=== PATIENT | female | born 2000 | race Caucasian/White ===

== ENCOUNTER 2021-08-22 17:53 | Inpatient (IN) | payer SELFPAY ==
--- NOTE | ~2021-08-22 | CT_ITS ---
EXAMINATION: CT abdomen pelvis w con INDICATION: Abdominal pain TECHNIQUE: Computed tomographic images of the abdomen and pelvis were obtained after the administrati on of 100 cc of Omnipaque 350 intravenous contrast. The dose-length product (DLP) was 192.05 mGy-cm. Automated exposure control and iterative reconstruction technique were employed. COMPARISON: None available FINDINGS: The lung bases are clear. The heart size is normal. The liver, spleen, pancreas, gallbladde r, and adrenal glands are normal. There is patchy perfusion of the kidneys. No pathologically enlarge d abdominal or pelvic lymph nodes are identified. There is no free intraperitoneal gas or evidence of bowel obstruction. The appendix is normal. There is a small volume of free fluid in the pelvis. IMPRESSION: 1. Findings consistent with bilateral pyelonephritis. Reviewed, dictated and finalized at location F. CULTURE DIRECTOR
--- NOTE | ~2021-08-22 | US_ITS ---
EXAMINATION: US renal BI DATE: 08/25/2021 14:58 INDICATION: Pyelonephritis. Persistent left flank pain. TECHNIQUE: Multiple ultrasound grayscale images of the kidneys were obtained. COMPARISON: None. FINDINGS: The right kidney measures 11.4 x 3.8 x 6.2 cm. The left kidney measures 10.7 x 5.1 x 3.5 cm. Subtle h eterogeneity to the renal cortical echogenicity in both kidneys with small regions with mildly increa sed echogenicity which appear to correspond to regions of hypoenhancement on prior CT consistent with pyelonephritis. There is no hydronephrosis in either kidney. No stones identified. The bladder is n ormal. IMPRESSION: 1. Several small ill-defined regions of subtle increased cortical echogenicity of both kidneys which appear to correspond to the region of hypoenhancement prior CT consistent with pyelonephritis. 2. No hydronephrosis. Reviewed, dictated and finalized at location A. T [employer] IMPRESSION: 1. Several small ill-defined regions of subtle increased cortical echogenicity of both kidneys which appear to correspond to the region of hypoenhancement pr ior CT consistent with pyelonephritis. 2. No hydronephrosis.
--- NOTE | ~2021-08-22 | XR_ITS ---
EXAMINATION: XR chest 1V portable INDICATION: Shortness of breath TECHNIQUE: Portable AP chest at 1857 hours COMPARISON: None available FINDINGS: The lungs are free of acute opacities. There is no pleural effusion or pneumothorax. The ca rdiomediastinal silhouette is normal. The visualized bones and soft tissues are unremarkable. IMPRESSION: 1. No acute cardiopulmonary abnormality. Reviewed, dictated and finalized at location F. IDENT PRACTICING UROLOGIST
[2021-08-22 18:08] VITALS: BP 109/65; PULSE 150; RESP 99; TEMP 39; O2SAT 98
--- NOTE | 2021-08-22 18:25 | PC.NURSE ---
pt states did not receive covid vaccine but did receive flu vaccine in may.
[2021-08-22 18:27] VITALS: PULSE 130
[2021-08-22] MEDS: SODIUM CHLORIDE 0.9% IV 1,000 ML 999 ML IV CONT ×2 (19:03→20:58)
[2021-08-22 19:07] VITALS: BP 109/65; PULSE 130; RESP 99; TEMP 39; O2SAT 98
[2021-08-22 19:12] LABS: Basophils Percent Auto 0.2 % (0.2-1.2); Hematocrit 35.4 % (37.0-47.0); Hemoglobin 12.1 g/dL (12.0-15.0); Immature Granulocyte Absolute 0.11 K/mm3 (0.00-0.031); Immature Granulocyte Percent A 0.7 % (0-0.5); Lymphocytes Absolute Auto 1.48 K/mm3 (0.9-3.2); Mean Corpuscular HGB Conc 34.2 g/dl (32-36); Mean Corpuscular Volume 87.8 fl (80-100); Mean Platelet Volume 9.8 fl (7.4-10.4); Monocytes Absolute Auto 1.3 K/mm3 (0.1-0.6); Monocytes Percent Auto 7.9 % (2.6-8.5); Neutrophils Absolute Auto 13.5 K/mm3 (1.3-6.7); Neutrophils Percent Auto 82.2 % (45.5-73.1); Platelet Count Result 276 k/mm3 (150-375); Red Blood Count 4.03 M/mm3 (4.2-5.4); Red Cell Distribution Width 11.9 % (11.5-14.5); White Blood Count 16.4 K/mm3 (4.5-10.0)
[2021-08-22 19:21] LABS: Alanine Aminotransferase 14 U/L (4-35); Albumin Level 3.9 g/dL (3.5-5.1); Alkaline Phosphatase 102 U/L (38-126); Anion Gap 13 mmol/L (8-16); Aspartate Amino Transferase 27 U/L (14-36); Bilirubin,Total 0.5 mg/dL (0.2-1.3); Blood Urea Nitrogen 6 mg/dL (7-17); Calcium 8.7 mg/dL (8.4-10.2); Carbon Dioxide 25 mmol/L (22-30); Chloride 94 mmol/L (98-107); Estimated CRCL calculation 62 ml/min; Estimated Glomerular Filt Rate > 60; Glucose 119 mg/dL (65-110); Potassium 3.5 mmol/L (3.4-5.0); Sodium 132 mmol/L (137-145)
--- NOTE | 2021-08-22 19:32 | ED.GENADULT ---
HPI - General Adult General Chief complaint: Weakness <Francisco Christina PA-C - Last Filed: 08/22/21 21:26> Stated complaint: MULTI C/O I THINK I HAVE COVID <Francisco Christina PA-C - Last Filed: 08/22/21 21:26> Time Seen by Provider: 08/22/21 18:34 <Francisco Christina PA-C - Last Filed: 08/22/21 21:26> Source: patient <STEVIE Nathan Last Filed: 08/22/21 21:26> Mode of arrival: ambulatory <STEVIE Nathan Last Filed: 08/22/21 21:26> Limitations: no limitations <Francisco Christina PA-C - Last Filed: 08/22/21 21:26> History of Present Illness HPI narrative: Patient is a 20-year-old female with chief complaint of fatigue, cough, congestion, sore throat, nausea, vomiting, diarrhea and abdominal pain that began on . Patient reports that she feels weak and dehydrated. Patient denies any blood in her vomit or stools. Patient reports that she has been trying to drink fluids but has not been able to eat or drink very much. Patient reports that she did receive her flu vaccination but has not received a COVID vaccination. Patient states that no one else at her home is sick. <Francisco Christina PA-C - Last Filed: 08/22/21 21:26> Related Data Home medications: Home Medications Medication Instructions Recorded Confirmed bupropion HCl [Wellbutrin] 75 mg PO TID 08/22/21 08/23/21 <Francisco Christina PA-C - Last Filed: 08/22/21 21:26> Allergies/adverse reactions: Allergies Allergy/AdvReac Type Severity Reaction Status Date / Time No Known Allergies Allergy Verified 08/22/21 18:25 <STEVIE Nathan Last Filed: 08/22/21 21:26> Review of Systems Review of Systems: CONSTITUTIONAL: Reports fever, body aches EYES: Denies visual changes, redness, or discharge. ENT: Reported rhinorrhea, congestion, sore throat, denies otalgia. CARDIOVASCULAR: Denies chest pain, palpitations, or edema. RESPIRATORY: Reports cough and dyspnea. GASTROINTESTINAL: Reports abdominal pain, nausea, vomiting, or diarrhea. GENITOURINARY: Denies dysuria or hematuria. SKIN: Denies rash or itching. MUSCULOSKELETAL: Denies back pain, joint pain, or myalgia. NEUROLOGIC: Denies headache, numbness, dizziness, or weakness. PSYCHIATRIC: Denies anxiety or depression. <Francisco Christina PA-C - Last Filed: 08/22/21 21:26> [facility] Social History Social History: Social History Smoking status: Never smoker Substance use: never Spiritual care concerns: No <Francisco Christina PA-C - Last Filed: 08/22/21 21:26> Exam Narrative: GENERAL: Well-appearing, well-nourished. Appears uncomfortable. HEAD: Normocephalic, atraumatic. EYES: PERRLA and EOMI. NECK: Range of motion intact without rigidity. CHEST: Clear to auscultation. No respiratory distress-mild tachypnea. No wheezes rales or rhonchi HEART: Increased rate and regular rhythm. No murmur heard. Normal peripheral pulses. ABDOMEN: Soft, tender with palpation of lower abdomen localizing to umbilicus, nondistended, normal active bowel sounds. No CVA tenderness. EXTREMITIES: Normal range of motion. No edema. SKIN: Warm, dry, no rash. NEURO: No focal deficits. Alert and oriented x3. PSYCH: Normal mood and affect. <Francisco Christina PA-C - Last Filed: 08/22/21 21:26> Course REHEATER/PA Physician Supervision For this patient encounter, I reviewed the REHEATER or PA documentation, treatment plan, and medical decision making. <Tevin Zuluaga MD - Last Filed: 08/23/21 11:27> Vital Signs Vital signs: Vital Signs Temperature 102.2 F H 08/22/21 18:08 Pulse Rate 150 H 08/22/21 18:08 Respiratory Rate 99 H 08/22/21 18:08 Blood Pressure 109/65 08/22/21 18:08 Pulse Oximetry 98 08/22/21 18:08 Temperature 98.8 F 08/23/21 10:13 Pulse Rate 89 08/23/21 06:00 Respiratory Rate 16 08/23/21 06:00 Blood Pressure 100/65 08/23/21 06:00 Pulse Oximetry 99 08/23/21 06:00 Theresa Choudhary
[2021-08-22 19:36] VITALS: BP 110/65; PULSE 110; RESP 24; TEMP 37.2; O2SAT 100
[2021-08-22 20:24] LABS: Add Urine Microscopic? YES; Appearance Urine Cloudy (Clear); Bacteria Urine Trace /hpf; Bilirubin Urine Negative (Negative); Blood Urine 2+ (Negative); Color Urine Yellow (Yellow); Glucose Urine UA Negative (Negative); Ketones Urine 1+ mg/dL (Negative); Leukocyte Esterase Ur 3+ LEU/UL (Negative); Mucus Urine Rare /lpf; Nitrate Urine Negative (Negative); Protein Urine Negative (Negative); Specific Grav Ur 1.003 (1.001-1.035); Squamous Epithelial Cell Urine Few /hpf (Few); Urobilinogen Urine Negative mg/dL (<2.0); WBC Urine 51-75 /hpf
[2021-08-22] MEDS: ONDANSETRON INJ 4 MG/2 ML VIAL IV PUSH (20:58)
[2021-08-22 21:11] LABS: EDCOVIDSCREEN Negative (Negative); Lactic Acid Reflex 0.6 mmol/L (0.7-2.1)
--- NOTE | 2021-08-22 21:22 | PM.IMHP ---
H&P: HPI History of Present Illness Date/Time: 08/22/21 21:22 cc: nausea, abdominal pain. HPI: This is a 20-year old lady without any significant past medical history presents to the emergency department with a 1 day onset of nausea associated with single episode of vomiting, several episodes of diarrhea, body aches. The patient had been in her usual state of health until last . She notices fatigue associated with dry cough, congestion sore throat nausea vomiting diarrhea and abdominal pain. Patient complains of generalized weakness and dehydration. Her vomitus has been without blood. She had loose bowel movements without blood. Oral intake has been poor as the patient reports trying to drink fluids but not able to keep much down. Patient has been vaccinated against the flu but has not been vaccinated against COVID-19. There is no sick contact at home. Her flu test was positive. Patient denies any lower urinary tract symptoms. There is no burning with urination foul smelly urine frequency or urgency. There is no history of recurrent UTI. There is no fever, chills, frequent urination, flank pain, hematoma. On arrival to the emergency room vital signs are stable but febrile with a temperature of 102.2? F, pulse rate 110-150, respiration 24, blood pressure 109/60 5-1 10/65 and pulse ox 90 8-100% on room air. CBC shows WBC of 16.4, hemoglobin 12.1, hematocrit 35.4 platelet count 276. Chemistry shows a serum sodium of 132, potassium 3.5, chloride 94, bicarb 25, BUN 6, creatinine 1 and a blood glucose of 119. Urinalysis shows 3+ leukocyte esterase, negative nitrate, RBC 3-5, the recent 51-75, trace bacteria. Chest x-ray shows no acute cardiopulmonary abnormality. Abdomen pelvis CT shows findings consistent with bilateral pyelonephritis. COVID-19 rapid antigen was negative. Influenza a was positive. Patient was given a bolus normal saline 1 L and started on ceftriaxone 1 g IV every 24 hours. Patient was admitted under observation status. Chief Complaint: Weakness; I think I may have COVID . Review of Systems Review of Systems: All systems reviewed & are unremarkable except as noted in HPI and below Constitutional: Constitutional: Reports as per HPI, Denies chills, Reports fatigue and Reports weakness Eyes: Eyes: Reports as per HPI, Reports no additional eye complaints and Denies blurry vision ENT: Reports system reviewed and no additional complaints, except as documented, Reports as per HPI and Denies epistaxis Cardiovascular: Cardiovascular: Reports as per HPI, Denies chest pain and Reports leg edema Comments: Tachycardia. Respiratory: Respiratory: Reports as per HPI, Reports no additional respiratory complaints and Reports dyspnea Gastrointestinal: Gastrointestinal: Reports as per HPI, Reports abdominal pain, Denies hematochezia, Reports diarrhea, Reports nausea, Reports vomiting and Denies hematemesis Genitourinary: Genitourinary: Reports as per HPI, Denies hematuria, Denies urinary frequency, Denies nocturia, Denies dysuria, Reports flank pain and Denies urinary urgency Musculoskeletal: Musculoskeletal: Reports no additional musculoskeletal complaints and Reports as per HPI Integumentary/Breasts: Skin/Breast: Reports system reviewed and no additional complaints, except as docu, Reports as per HPI and Denies rash Neurologic: Reports system reviewed and no additional complaints, except as documented, Reports as per HPI and Denies headache(s) Psychiatric: Psychiatric: Reports no additional psychiatric complaints and Reports as per HPI [facility] Social History Social History Smoking status: Never smoker Substance use: never Spiritual care concerns: No Meds Home Medications and Allergies Home Medications Medication Instructions Recorded Confirmed Type bupropion HCl [Wellbutrin] 75 mg PO TID 08/22/21 08/23/21 History Allergies Allergy/AdvReac Type Severity Re
[2021-08-22 22:50] VITALS: PULSE 80; RESP 18; O2SAT 100
[2021-08-22 22:55] VITALS: BP 96/61; PULSE 98; RESP 16; TEMP 36.2; O2SAT 100
[2021-08-22 23:19] VITALS: BMI 21.7
--- NOTE | 2021-08-22 23:25 | ADMGEN ---
This patient, Angelia Johnson, was admitted to [facility] Surg Room 332-02. Patient/family oriented to hospital policies and general routines including ID bracelet, bed and alarms, visiting hours, pain management, procedures, bathroom and other care routines, personal items, smoking policy, room service/diet, and visiting hours. Information on how to activate the Rapid Response Team has been discussed. Patient/Family are encouraged to report perceived risks to care and to ask questions if they do not understand what they are told or what they should do.
[2021-08-23] VITALS (8 sets, daily range): BP systolic 93–100; BP diastolic 43–65; PULSE 81–89; RESP 16–18; TEMP 35.6–40.3; O2SAT 99–100
[2021-08-23] MEDS: HYDROcodone/acetaminophen (*CRX) 5-325 MG TABLET 1 TAB PO ×2 (01:22→20:10)
[2021-08-23] MEDS: ACETAMINOPHEN 500 MG TABLET 1000 MG PO (09:10)
[2021-08-23] MEDS: IBUPROFEN 600 MG TABLET PO (09:11)
--- NOTE | 2021-08-23 12:34 | PM.IMPN ---
Progress Note: A&P Assessment and Plan (1) Pyelonephritis: Code(s): N12 - Tubulo-interstitial nephritis, not specified as acute or chronic Status: Acute Assessment and Plan: Patient presents classic symptoms of pyelonephritis including costovertebral angle tenderness on physical examination associated with nausea and vomiting. Denies any symptoms of cystitis She reports pain in the lower abdomen Leukocytosis, tachycardia and left shift UA + CT scan of the abdomen pelvis reveals bilateral pyelonephritis S/p IVF Continue Rocephin Follow UC and BC (2) Influenza A: Code(s): J10.1 - Influenza due to other identified influenza virus with other respiratory manifestations Status: Acute Assessment and Plan: Patient tested positive for influenza A Given the chronology of symptoms, there is not indication for antiviral medication Continue symptomatic management Subjective Date/time seen: 08/23/21 12:34 Interval history: Pt seen and evaluated; labs, vs, diagnostic results reviewed; denies any SOB or CP; +abdominal pain; TMAX 40.3 Review of Systems Review of Systems: All systems reviewed & are unremarkable except as noted in HPI and below Exam Const: General: no acute distress, alert and awake Orientation/consciousness: patient oriented x3 HENMT: Head: normocephalic and atraumatic Ears: hearing grossly normal bilaterally and external ears normal Face and sinus: face symmetric Mouth: Yes Normal oral and palatal mucosa present Eyes: EOM: EOMs intact bilaterally Neck: Neck: full ROM, trachea midline and no JVD Chest: Chest palpation & inspection: normal inspection of the chest Resp: Effort & Inspection: normal respiratory effort Cardio: Jugular venous distension: no JVD Rate: regular rate Rhythm: regular rhythm Heart sounds: S1 normal heart sound present and S2 normal heart sound present GI: Inspection: normal to inspection GI Palp: Yes Soft to palpation Percussion: Yes normal to percussion Auscultation: normal bowel sounds : General: Yes CVA tenderness Skin: General skin exam: normal color Rashes: no rashes Neuro: General: patient oriented x3 Speech: normal speech Extrem: General: no clubbing, cyanosis or edema Psych: Appearance: grossly normal Affect: normal affect Judgement: Good judgement present (Psych) Objective Data Vital Signs Vital Signs: Vital Signs - 24 hr 08/22/21 18:08 08/22/21 18:27 08/22/21 19:07 Temperature 39.0 C H 39.0 C H Pulse Rate 150 H 130 H 130 H Respiratory Rate 99 H 99 H Blood Pressure 109/65 109/65 Pulse Oximetry 98 98 08/22/21 19:36 08/22/21 22:50 08/22/21 22:55 Temperature 37.2 C 36.2 C L Pulse Rate 110 H 80 98 Respiratory Rate 24 H 18 16 Blood Pressure 110/65 96/61 L Pulse Oximetry 100 100 100 08/23/21 06:00 08/23/21 09:10 08/23/21 09:11 Temperature 36.8 C 40.3 C H 40.3 C H Pulse Rate 89 Respiratory Rate 16 Blood Pressure 100/65 Pulse Oximetry 99 08/23/21 10:11 08/23/21 10:13 Temperature 37.1 C 37.1 C Pulse Rate Respiratory Rate Blood Pressure Pulse Oximetry Intake/Output Intake/Output: Intake & Output 08/20/21 08/21/21 08/22/21 08/23/21 23:59 23:59 23:59 23:59 Intake Total 1100 490 Balance 1100 490 Meds/Results Medications: Active Medications Generic Name Dose Route Start Last Admin Trade Name Freq PRN Reason Stop Dose Admin Acetaminophen 1,000 mg 08/22/21 21:26 08/23/21 09:10 Acetaminophen 500 Mg Tablet PO 1,000 mg Q6H PRN Administration Mild Pain (1-3) or Fever Hydrocodone Bitart/Acetaminophen 1 tab 08/22/21 21:26 08/23/21 01:22 Hydrocodone/Acetaminophen (*Crx) 5-325 Mg Tablet PO 1 tab Q4H PRN Administration Pain Rated 4-6 Ceftriaxone Sodium/Dextrose 1 gm in 50 mls @ 100 mls/hr 08/23/21 21:00 Rocephin 1 Gm/D5w 50 Ml IVPB Q24H CHRISTOPHER Ibuprofen 600 mg 08/22/21 21:26 08/23/21 09:11 Ibuprofen 600 Mg Tablet PO 6
[2021-08-24] MEDS: HYDROcodone/acetaminophen (*CRX) 5-325 MG TABLET 1 TAB PO (01:23)
[2021-08-24 06:00] VITALS: BP 106/54; PULSE 94; RESP 16; TEMP 36.6; O2SAT 99
[2021-08-24 08:00] VITALS: BP 107/53; PULSE 89; RESP 16; TEMP 36.3; O2SAT 99
[2021-08-24 09:40] LABS: Basophils Percent Auto 0.2 % (0.2-1.2); Eosinophils Absolute Auto 0.1 K/mm3 (0-0.3); Eosinophils Percent Auto 0.8 % (0-4.4); Hematocrit 32.1 % (37.0-47.0); Hemoglobin 10.8 g/dL (12.0-15.0); Immature Granulocyte Absolute 0.22 K/mm3 (0.00-0.031); Immature Granulocyte Percent A 1.7 % (0-0.5); Lymphocytes Absolute Auto 2.02 K/mm3 (0.9-3.2); Lymphocytes Percent Auto 15.4 % (18.3-44.2); Mean Corpuscular HGB Conc 33.6 g/dl (32-36); Mean Corpuscular Hemoglobin 30.3 pg (26-34); Mean Corpuscular Volume 90.2 fl (80-100); Mean Platelet Volume 9.3 fl (7.4-10.4); Monocytes Percent Auto 7.9 % (2.6-8.5); Neutrophils Absolute Auto 9.7 K/mm3 (1.3-6.7); Platelet Count Result 271 k/mm3 (150-375); Red Blood Count 3.56 M/mm3 (4.2-5.4); Red Cell Distribution Width 12.5 % (11.5-14.5); White Blood Count 13.1 K/mm3 (4.5-10.0)
[2021-08-24 09:52] LABS: Alanine Aminotransferase 19 U/L (4-35); Albumin Level 3.3 g/dL (3.5-5.1); Alkaline Phosphatase 92 U/L (38-126); Anion Gap 5 mmol/L (8-16); Aspartate Amino Transferase 35 U/L (14-36); Bilirubin,Total 0.3 mg/dL (0.2-1.3); Blood Urea Nitrogen 6 mg/dL (7-17); Calcium 8.7 mg/dL (8.4-10.2); Carbon Dioxide 31 mmol/L (22-30); Chloride 100 mmol/L (98-107); Estimated CRCL calculation 86 ml/min; Estimated Glomerular Filt Rate > 60; Glucose 111 mg/dL (65-110); Potassium 3.9 mmol/L (3.4-5.0); Sodium 136 mmol/L (137-145)
[2021-08-24] MEDS: ACETAMINOPHEN 500 MG TABLET 1000 MG PO (11:09)
[2021-08-24 11:52] VITALS: BP 102/64; PULSE 95; RESP 17; TEMP 36.6; O2SAT 98
[2021-08-24 16:25] VITALS: BP 97/60; PULSE 79; RESP 17; TEMP 36; O2SAT 99
--- NOTE | 2021-08-24 18:04 | PM.IMPN ---
Progress Note: A&P Assessment and Plan (1) Pyelonephritis: Code(s): N12 - Tubulo-interstitial nephritis, not specified as acute or chronic Status: Acute Assessment and Plan: Patient presents classic symptoms of pyelonephritis including costovertebral angle tenderness on physical examination associated with nausea and vomiting. N/V/abd pain resolved. Leukocytosis, tachycardia and left shift -- RESOLVED. CT scan of the abdomen pelvis reveals bilateral pyelonephritis S/p IVFs Continue Rocephin Her blood cultures from the 11th showed no growth, her urine culture from the 11th showed E coli that was sensitive to Rocephin. Will continue IV Rocephin. Her leukocytes have improved from 16.4 to 13.1. And no fevers for the past 24 hours. (2) Influenza A: Code(s): J10.1 - Influenza due to other identified influenza virus with other respiratory manifestations Status: Acute Assessment and Plan: Patient tested positive for influenza A Given the chronology of symptoms, there is not indication for antiviral medication Continue symptomatic management no concerns noted today. ordered incentive spirometer Subjective Date/time seen: 08/24/21 18:04 Interval history: Angelia was resting in bed at the time of my exam. She was comfortable. She is not requiring any supplemental oxygen at this time. She has been eating well and drinking well and urinating independently. She does continue to have some posterior flank pain bilaterally. She is tolerating her IV antibiotics well. She denies any nausea or vomiting or diarrhea or abdominal pain. Her blood cultures from the 11th showed no growth, her urine culture from the th showed E coli that was sensitive to Rocephin. Will continue IV Rocephin. Her leukocytes have improved from 16.4 to 13.1. And no fevers for the past 24 hours. Review of Systems Review of Systems: All systems reviewed & are unremarkable except as noted in HPI and below Constitutional: Constitutional: Reports as per HPI, Denies chills, Reports fatigue, Denies headache(s) and Reports weakness Eyes: Eyes: Reports as per HPI, Reports no additional eye complaints and Denies blurry vision ENT: Reports system reviewed and no additional complaints, except as documented, Reports as per HPI, Denies headache(s) and Denies epistaxis Cardiovascular: Cardiovascular: Reports as per HPI, Denies chest pain and Reports dyspnea Respiratory: Respiratory: Reports as per HPI, Reports no additional respiratory complaints, Denies chest congestion, Denies cough, Denies hemoptysis, Reports dyspnea, Reports dyspnea on exertion and Denies wheezing Gastrointestinal: Gastrointestinal: Reports as per HPI, Denies abdominal pain, Denies hematochezia, Denies diarrhea, Denies nausea, Denies vomiting and Denies hematemesis Genitourinary: Genitourinary: Reports as per HPI, Denies hematuria, Denies urinary frequency, Denies nocturia, Denies dysuria, Reports flank pain (bilaterally ) and Denies urinary urgency Musculoskeletal: Musculoskeletal: Reports no additional musculoskeletal complaints, Reports as per HPI and Reports myalgias Integumentary/Breasts: Skin/Breast: Reports system reviewed and no additional complaints, except as docu, Reports as per HPI and Denies rash Neurologic: Reports system reviewed and no additional complaints, except as documented, Reports as per HPI, Denies headache(s) and Reports weakness Psychiatric: Psychiatric: Reports no additional psychiatric complaints and Reports as per HPI Endocrine: Endocrine: Reports fatigue Exam Narrative: GENERAL: Well-appearing, well-nourished. Appears uncomfortable. HEAD: Normocephalic, atraumatic. EYES: PERRLA and EOMI. NECK: Range of motion intact without rigidity. CHEST: Clear to auscultation. No respiratory distress-mild tachypnea. No wheezes rales or rhonchi HEART: Increased rate and regular rhythm. No murmur heard. Normal peripheral pulses. ABDOMEN: Soft,
[2021-08-24 23:04] VITALS: BP 116/68; PULSE 93; RESP 17; TEMP 36.5; O2SAT 100
[2021-08-25 06:34] VITALS: BP 117/69; PULSE 80; RESP 18; TEMP 36.5; O2SAT 100
--- NOTE | 2021-08-25 08:55 | PM.DS ---
DS: Admitting Diagnosis Discharge Date 08/25/2021 Admitting Diagnosis Pyelonephritis, influenza a DS: Discharge Diagnosis Discharge Diagnosis (1) Pyelonephritis: Code(s): N12 - Tubulo-interstitial nephritis, not specified as acute or chronic Status: Acute Assessment and Plan: Patient presents classic symptoms of pyelonephritis including costovertebral angle tenderness on physical examination associated with nausea and vomiting. N/V/abd pain resolved. Leukocytosis, tachycardia and left shift -- RESOLVED. CT scan of the abdomen pelvis reveals bilateral pyelonephritis S/p IVFs Continue Rocephin Her blood cultures from the showed no growth, her urine culture from the showed E coli that was sensitive to Rocephin. Will continue IV Rocephin. Her leukocytes have improved from 16.4 to 13.1. And no fevers for the past 24 hours. (2) Influenza A: Code(s): J10.1 - Influenza due to other identified influenza virus with other respiratory manifestations Status: Acute Assessment and Plan: Patient tested positive for influenza A Given the chronology of symptoms, there is not indication for antiviral medication Continue symptomatic management no concerns noted today. ordered incentive spirometer DS: Summary Hospital Course Hospital Course: Patient admitted, IV fluids given, patient started on IV antibiotics Rocephin, urine cultures and blood cultures completed, urine culture grew E coli sensitive to Cipro and Rocephin. Patient discharged on oral Cipro for 2 weeks with expected follow-up to her primary care provider. Patient is not having any shortness of breath or respiratory difficulties or cough related to influenza A. Instructed her to use her incentive spirometer and follow-up with her PCP. Time Spent with Patient Time attestation: Total time spent providing and/or coordinating discharge services: 60 minutes Exam Narrative: GENERAL: Well-appearing, well-nourished. Appears uncomfortable. HEAD: Normocephalic, atraumatic. EYES: PERRLA and EOMI. NECK: Range of motion intact without rigidity. CHEST: Clear to auscultation. No respiratory distress-mild tachypnea. No wheezes rales or rhonchi HEART: Increased rate and regular rhythm. No murmur heard. Normal peripheral pulses. ABDOMEN: Soft, tender with palpation of lower abdomen localizing to umbilicus, nondistended, normal active bowel sounds. Bilateral CVA tenderness. EXTREMITIES: Normal range of motion. No edema. SKIN: Warm, dry, no rash. NEURO: No focal deficits. Alert and oriented x3. PSYCH: Normal mood and affect. Const: General: comfortable, no acute distress, alert and awake Orientation/consciousness: patient oriented x3 HENMT: Head: normocephalic and atraumatic Ears: hearing grossly normal bilaterally and external ears normal General nose exam: no epistaxis Face and sinus: face symmetric Mouth: Yes Normal oral and palatal mucosa present Eyes: EOM: EOMs intact bilaterally Neck: Neck: full ROM, trachea midline and no JVD Chest: Chest palpation & inspection: normal inspection of the chest Resp: Effort & Inspection: normal respiratory effort Cardio: Jugular venous distension: no JVD Rate: regular rate Rhythm: regular rhythm Heart sounds: S1 normal heart sound present and S2 normal heart sound present GI: Inspection: normal to inspection and non-distended Auscultation: normal bowel sounds : General: Yes CVA tenderness Urinary Catheter: Urinary Catheter: urine clear (but thomas) Back/Spine/Pelvis: Back: CVA tenderness Skin: General skin exam: normal color Rashes: no rashes Neuro: General: patient oriented x3 and gait normal Speech: normal speech Motor exam (neuro): 5/5 motor strength present throughout and Normal motor muscle tone present throughout Extrem: General: normal to inspection, normal exam except as noted, no clubbing, cyanosis or edema, no edema and no pedal edema Psych: Appearance: grossly normal Me
[2021-08-25] MEDS: HYDROcodone/acetaminophen (*CRX) 5-325 MG TABLET 1 TAB PO (10:01)
[2021-08-25 12:47] LABS: Hematocrit 37.8 % (37.0-47.0); Hemoglobin 12.4 g/dL (12.0-15.0); Mean Corpuscular HGB Conc 32.8 g/dl (32-36); Mean Corpuscular Hemoglobin 30.2 pg (26-34); Mean Corpuscular Volume 92.2 fl (80-100); Mean Platelet Volume 9.6 fl (7.4-10.4); Platelet Count Result 388 k/mm3 (150-375); Red Cell Distribution Width 12.7 % (11.5-14.5); White Blood Count 8.6 K/mm3 (4.5-10.0)
[2021-08-25 12:58] LABS: Alanine Aminotransferase 18 U/L (4-35); Albumin Level 3.8 g/dL (3.5-5.1); Alkaline Phosphatase 108 U/L (38-126); Anion Gap 10 mmol/L (8-16); Aspartate Amino Transferase 25 U/L (14-36); Bilirubin,Total 0.5 mg/dL (0.2-1.3); Blood Urea Nitrogen 6 mg/dL (7-17); Calcium 9.4 mg/dL (8.4-10.2); Carbon Dioxide 29 mmol/L (22-30); Chloride 98 mmol/L (98-107); Estimated CRCL calculation 86 ml/min; Estimated Glomerular Filt Rate > 60; Glucose 106 mg/dL (65-110); Potassium 3.8 mmol/L (3.4-5.0); Sodium 137 mmol/L (137-145)
[2021-08-25 14:00] VITALS: BP 109/66; PULSE 82; RESP 14; TEMP 35.7; O2SAT 100
[2021-08-25 16:00] VITALS: BP 122/69; PULSE 89; RESP 16; TEMP 36.4; O2SAT 100
== END 2021-08-25 18:29 | disposition home or self-care (01) | DRG 463 ==
LOC: ANHED 21:10 → ANH3MEDSUR 22:16
PROVIDERS: Emergency Medicine; Physician Assistant; Admitting Provider Internal Medicine; Emergency Provider Emergency Medicine; Visit Provider Nurse Practitioner
DX: N12 Tubulo-interstitial nephritis, not specified as acute or chronic (principal); B96.20 Unspecified Escherichia coli [E. coli] as the cause of diseases classified elsewhere; J10.1 Influenza due to other identified influenza virus with other respiratory manifestations; Z20.822 Contact with and (suspected) exposure to COVID-19; Z79.899 Other long term (current) drug therapy
CPT/HCPCS: 36415; 71045; 74177; 76775; 80053; 81001; 81025; 83605; 85025; 85027; 87040; 87077; 87086; 87088; 87186; 87426; 87804; 96361; 96365; 96366; 96367; 96375; 99285; A9270; C9803; G0378; J0131; J0696; J2405; J7030; Q9967

== ENCOUNTER 2021-10-03 17:00 | Emergency (ER) | payer MEDICAID, SELFPAY ==
--- NOTE | ~2021-10-03 | US_ITS ---
EXAMINATION: US OB <=14 wk fetus w TV DATE: 10/03/2021 19:07 INDICATION: Intermittent vaginal bleeding during first trimester TECHNIQUE: Real-time pelvic transabdominal and transvaginal ultrasound was performed. COMPARISON: None. FINDINGS: The uterus measures 6.9 x 5.9 x 4.3 cm. There is an intrauterine gestational sac. A yolk s ac is identified. heart motion is identified measuring 92 beats per minute (bpm) by M-mode Dopp ler. The crown rump length measures 2 mm , which correlates with an estimated gestational age o f 6 weeks and 0 day(s) (+/-) 3 day(s). The left ovary is not visualized however no left adnexal abnormality is seen. The right ovary measure s 2.5 x 1.6 x 1.4 cm. There is normal vascular flow in the right ovary. There is a small amount of fr ee fluid in the pelvis. IMPRESSION: 1. Live intrauterine with an estimated gestational age of 6 weeks and 0 day(s) (+/-) 3 day( s) and an estimated delivery date of 05/29/2022. 2. bradycardia. Reviewed, dictated and finalized at location [employer] IMPRESSION: 1. Live intrauterine with an estimated gestational age of 6 weeks and 0 day(s) (+/-) 3 day(s) and an estimated delivery date of 05/29/2022. 2. bradycardia.
[2021-10-03 17:01] VITALS: BP 106/63; PULSE 92; RESP 20; TEMP 36; O2SAT 100
--- NOTE | 2021-10-03 17:50 | ED.PREGNANCY ---
HPI - General Chief complaint: Vaginal Bleeding <Sintia Ramos PA-C - Last Filed: 10/03/21 20:38> Stated complaint: Vaginal Bleeding, 7 weeks <Sintia Ramos PA-C - Last Filed: 10/03/21 20:38> Time Seen by Provider: 10/03/21 17:43 <Sintia Ramos PA-C - Last Filed: 10/03/21 20:38> Source: patient <Sintia Ramos PA-C - Last Filed: 10/03/21 20:38> Mode of arrival: ambulatory <STEVIE Sweeney Last Filed: 10/03/21 20:38> Limitations: no limitations <Sintia Ramos PA-C - Last Filed: 10/03/21 20:38> History of Present Illness HPI Narrative: This is a 20-year-old , about 8 weeks by LMP that presents to the emergency department for vaginal bleeding. Ongoing since yesterday. Associated with some mild pelvic cramping. She does not have an [employer]. Reports she was recently admitted to this facility for pyelonephritis. She did not finish her antibiotics as she found out she was . Does report some urinary frequency. Denies fever, vomiting, flank pain, or dysuria. <Sintia Ramos PA-C - Last Filed: 10/03/21 20:38> Related Data Home medications: Home Medications Medication Instructions Recorded Confirmed bupropion HCl 75 mg PO TID 08/22/21 08/23/21 <Sintia Ramos PA-C - Last Filed: 10/03/21 20:38> Allergies/Adverse reactions: Allergies Allergy/AdvReac Type Severity Reaction Status Date / Time No Known Allergies Allergy Verified 10/03/21 17:23 <STEVIE Sweeney Last Filed: 10/03/21 20:38> Review of Systems Review of Systems: CONSTITUTIONAL: Denies fever GASTROINTESTINAL: Reports pelvic pain. Denies nausea, vomiting GENITOURINARY: Denies dysuria or hematuria. <STEVIE Sweeney Last Filed: 10/03/21 20:38> All systems reviewed & are unremarkable except as noted in HPI and below <Sintia Ramos PA-C - Last Filed: 10/03/21 20:38> PMFSH Past Medical History Medical History: Medical History (Updated 10/03/21 @ 20:36 by Sintia Ramos PA-C) No active medical problems <Sintia Ramos PA-C - Last Filed: 10/03/21 20:38> Social History Social History: Social History Smoking status: Never smoker Substance use: never Spiritual care concerns: No <Sintia Ramos PA-C - Last Filed: 10/03/21 20:38> Exam Narrative: GENERAL: Well-appearing, well-nourished, and in no acute distress. HEAD: Normocephalic, atraumatic. EYES: EOMI. CHEST: Clear to auscultation. No respiratory distress. No wheezes rales or rhonchi HEART: Regular rate and rhythm. No murmur heard. Normal peripheral pulses. ABDOMEN: Soft, nontender, nondistended, normal active bowel sounds. No CVA tenderness EXTREMITIES: Normal range of motion. No edema. SKIN: Warm, dry, no rash. NEURO: No focal deficits. Alert and oriented x3. PSYCH: Normal mood and affect PELVIC: Normal appearing cervix, closed. Small amount of brown discharge noted <Sintia Ramos PA-C - Last Filed: 10/03/21 20:38> Course Consultations Consultation #1: Spoke with Dr. Easley about patient and work-up. Patient is to follow-up in clinic next week. <Sintia Ramos PA-C - Last Filed: 10/03/21 20:38> Date: 10/03/21 <Sintia Ramos PA-C - Last Filed: 10/03/21 20:38> Time: 20:35 <Sintia Ramos PA-C - Last Filed: 10/03/21 20:38> Vital Signs Vital signs: Vital Signs Temperature 96.8 F L 10/03/21 17:01 Pulse Rate 92 10/03/21 17:01 Respiratory Rate 20 10/03/21 17:01 Blood Pressure 106/63 10/03/21 17:01 Pulse Oximetry 100 10/03/21 17:01 Temperature 98.6 F 10/03/21 21:06 Pulse Rate 72 10/03/21 21:06 Respiratory Rate 18 10/03/21 21:06 Blood Pressure 108/63 10/03/21 21:06 Pulse Oximetry 99 10/03/21 21:06 <Sintia Ramos PA-C - Last Filed: 10/03/21 20:38> MDM - OB/Uterine Contractions MDM Narrative Medical decision making na
[2021-10-03 18:10] VITALS: BP 101/69; PULSE 85
[2021-10-03 18:12] VITALS: BP 106/69; BP 111/69; PULSE 78; PULSE 80
[2021-10-03 18:28] LABS: Basophils Percent Auto 0.3 % (0.2-1.2); Eosinophils Absolute Auto 0.2 K/mm3 (0-0.3); Eosinophils Percent Auto 2.5 % (0-4.4); Hematocrit 41.2 % (37.0-47.0); Hemoglobin 13.8 g/dL (12.0-15.0); Immature Granulocyte Absolute 0.02 K/mm3 (0.00-0.031); Immature Granulocyte Percent A 0.3 % (0-0.5); Lymphocytes Absolute Auto 2.28 K/mm3 (0.9-3.2); Lymphocytes Percent Auto 28.9 % (18.3-44.2); Mean Corpuscular HGB Conc 33.5 g/dl (32-36); Mean Corpuscular Hemoglobin 30.3 pg (26-34); Mean Corpuscular Volume 90.5 fl (80-100); Mean Platelet Volume 9.4 fl (7.4-10.4); Monocytes Absolute Auto 0.4 K/mm3 (0.1-0.6); Monocytes Percent Auto 4.9 % (2.6-8.5); Neutrophils Percent Auto 63.1 % (45.5-73.1); Platelet Count Result 311 k/mm3 (150-375); Red Blood Count 4.55 M/mm3 (4.2-5.4); Red Cell Distribution Width 12.4 % (11.5-14.5); White Blood Count 7.9 K/mm3 (4.5-10.0)
[2021-10-03 18:31] LABS: Anion Gap 10 mmol/L (8-16); Blood Urea Nitrogen 7 mg/dL (7-17); Calcium 10.1 mg/dL (8.4-10.2); Carbon Dioxide 24 mmol/L (22-30); Chloride 104 mmol/L (98-107); Estimated CRCL calculation 99 ml/min; Estimated Glomerular Filt Rate > 60; Glucose 84 mg/dL (65-110); Sodium 138 mmol/L (137-145)
[2021-10-03 18:44] LABS: Add Urine Microscopic? NO; Appearance Urine Clear (Clear); Bilirubin Urine Negative (Negative); Blood Urine Negative (Negative); Color Urine Straw (Yellow); Glucose Urine UA Negative (Negative); Ketones Urine Negative (Negative); Leukocyte Esterase Ur Negative LEU/UL (Negative); Nitrate Urine Negative (Negative); Protein Urine Negative (Negative); Specific Grav Ur 1.008 (1.001-1.035); Urobilinogen Urine Negative mg/dL (<2.0)
--- NOTE | 2021-10-03 18:50 | PC.NURSE ---
Patient departs for
[2021-10-03 19:58] VITALS: BP 108/74; PULSE 84; RESP 16; TEMP 37.1; O2SAT 99
[2021-10-03 21:06] VITALS: BP 108/63; PULSE 72; RESP 18; TEMP 37; O2SAT 99
== END 2021-10-03 21:07 | disposition home or self-care (01) ==
PROVIDERS: Physician Assistant; Emergency Provider General Practice
DX: O20.9 Hemorrhage in early pregnancy, unspecified (principal); O36.8310 Maternal care for abnormalities of the fetal heart rate or rhythm, first trimester, not applicable or unspecified; Z3A.01 Less than 8 weeks gestation of pregnancy
CPT/HCPCS: 36415; 76801; 76817; 80048; 81003; 81025; 84702; 85025; 85461; 99284

== ENCOUNTER 2022-05-24 12:44 | Outpatient (CLI) | payer OTHER, SELFPAY ==
[2022-05-24 18:11] VITALS: BP 121/76; PULSE 91
== END 2022-05-24 14:05 | disposition home or self-care (01) ==
LOC: ANHOBOP 14:02
PROVIDERS: Visit Provider Obstetrics & Gynecology
DX: O41.8X90 Other specified disorders of amniotic fluid and membranes, unspecified trimester, not applicable or unspecified (principal); Z3A.00 Weeks of gestation of pregnancy not specified
CPT/HCPCS: 59025; 84112

== ENCOUNTER 2022-05-31 02:00 | Inpatient (IN) | payer OTHER, SELFPAY ==
[2022-05-31] VITALS (121 sets, daily range): BP systolic 88–214; BP diastolic 45–198; PULSE 28–234; RESP 18; TEMP 36.3–37.1; O2SAT 96–100; BMI 22.1
--- OUTSIDE RECORDS SUMMARY | 2022-05-31 03:40 | XMS_ITS | Encounter Summary ---
:2000 Author Reason for Visit None recorded. Assessment and Plan 1. COVID-19 ? US, obstetric, follow-up Discussion Note: None recorded.Patient educational handouts: No information available. Plan of Care Reminders Provider Appointments Induction 06/04/2022 Jany castañeda MD 4:00PM Lab None recorded. ? ? Referral None recorded. ? ? Procedures None recorded. ? ? Surgeries None recorded. ? ? Imaging US, Obstetric, Follow-up 05/01/2022 Effie pedraza Medications Name Start Date ? ? Euthyrox 75 mcg tablet ? Take 1 tablet every day by oral route. ondansetron 8 mg disintegrating tablet ? Place 1 tablet twice a day by translingual route. Medications Administered None recorded. Vitals None recorded. Results Lab Results None recorded. Allergies Code Code System Name Reaction Severity Onset NKDA ? ? ? Problems Name Status Onset Date Source ? Active 12/13/2021 ? Uterine Size for Dates Discrepancy Active 03/30/2022 ? Subclinical Hypothyroidism Active ? ? Procedures Date Name Performed by ? 08/12/2016 Dilation and Curettage Information not a vailable 04/10/2022 US, Obstetric, Follow-up [place] [address] [place] [address] ([address]) 05/01/2022 US, Obstetric, Follow-up [place] [address] [place] [address]
--- OUTSIDE RECORDS SUMMARY | 2022-05-31 03:40 | XMS_ITS | Encounter Summary ---
:2000 Author Reason for Visit OB visit Assessment and Plan 1. Routine care 2. Subclinical hypothyroidism 3. Uterine size for dates discrepancy Discussion Note: None recorded.Patient educational handouts: No information available. Plan of Care Reminders Provider Appointments Induction 06/04/2022 4:00PM Jany Easley MD Lab None recorded. ? ? Referral None recorded. ? ? Procedures None recorded. ? ? Surgeries None recorded. ? ? Imaging None recorded. ? ? Medications Name Start Date ? ? Euthyrox 75 mcg tablet ? Take 1 tablet every day by oral route. ondansetron 8 mg disintegrating tablet ? Place 1 tablet twice a day by translingual route. Medications Administered None recorded. Vitals Height Weight BMI Blood Pressure 5 ft 2 in 114 lbs 20.9 kg/m2 99/67 mm[Hg] Results Lab Results None recorded. Allergies Code Code System Name Reaction Severity Onset NKDA ? ? ? Problems Name Status Onset Date Source ? Active 12/13/2021 ? Uterine Size for Dates Discrepancy Active 03/30/2022 ? Subclinical Hypothyroidism Active ? ? Procedures Date Name Performed by ? 08/12/2016 Dilation and Curettage Information not a vailable 04/10/2022 , Obstetric, Follow-up [place] [address] [place] [address] ([address]) Vaccine List None recorded. Social History
--- OUTSIDE RECORDS SUMMARY | 2022-05-31 03:40 | XMS_ITS | Encounter Summary ---
:2000 Author Reason for Visit OB visit Assessment and Plan 1. Routine care Discussion Note: None recorded.Patient educational handouts: No [...] BMI Blood Pressure 5 ft 2 in 118 lbs 21.6 kg/m2 110/71 mm[Hg] Results Lab Results None recorded. Allergies Code Code System Name Reaction Severity Onset NKDA ? ? ? Problems Name Status Onset Date Source ? Active 12/13/2021 ? Uterine Size for Dates Discrepancy Active 03/30/2022 ? Subclinical Hypothyroidism Active ? ? Procedures Date Name Performed by ? 08/12/2016 Dilation and Curettage Information not a vailable 04/10/2022 US, Obstetric, Follow-up [place] [address] [place] [address] ([address]) 05/01/2022 US, Obstetric, Follow-up [place] [address] [place],
--- OUTSIDE RECORDS SUMMARY | 2022-05-31 03:40 | XMS_ITS ---
:2000 Author Care Team Providers Name Role Phone Jany Easley Primary Care Provider Unavailable Allergies Code Code System Name Reaction Severity Status Onset NKDA ? Medications Name Status Start Date Stop Date ? ? bupropion HCl XL 150 mg 24 hr tablet, extended release Completed ? 11/01/2021 TAKE 1 TABLET BY MOUTH DAILY bupropion HCl XL 300 mg 24 hr tablet, extended release Completed ? 11/01/2021 TAKE 1 TABLET BY MOUTH DAILY ciprofloxacin 500 mg tablet Completed ? 10/11 TAKE 1 TABLET BY MOUTH EVERY 12 HOURS FOR 14 DAYS FOR PYELONEPH RITIS etonogestrel 0.12 mg-ethinyl estradiol 0.015 mg/24 hr vaginal ri ng Completed ? 11/01/2021 INSERT 1 RING EVERY 3 TO 4 WEEKS DIRECTED Euthyrox 25 mcg tablet Completed ? 2 TAKE 1 TABLET BY MOUTH ONCE DAILY Euthyrox 50 mcg tablet Completed ? 2 Euthyrox 75 mcg tablet Active ? Not avail able levothyroxine 25 mcg capsule Completed ? ondansetron 8 mg disintegrating tablet Active ? Not available Problems Name Status Onset Date Source ? Active 12/13/2021 ? Uterine Size for Dates Discrepancy Active 03/30/2022 ? Subclinical Hypothyroidism Active ? ? Procedures Date Name Performed by ? 08/12/2016 Dilation and Curettage Information not a vailable 11/01/2021 US, Obstetric, Transvaginal [place] [address] [place] [address] ([address]) 01/10/2022 US, Obstetric, 2Nd or 3Rd Trimester Catie morgan
--- OUTSIDE RECORDS SUMMARY | 2022-05-31 03:40 | XMS_ITS | Encounter Summary ---
[...] ft 2 in 118 lbs 21.6 kg/m2 108/78 mm[Hg] Results Lab Results None recorded. Allergies Code Code System Name Reaction Severity Onset NKDA ? ? ? Problems Name Status Onset Date Source ? Active 12/13/2021 ? Uterine Size for Dates Discrepancy Active 03/30/2022 ? Subclinical Hypothyroidism Active ? ? Procedures Date Name Performed by ? 08/12/2016 Dilation and Curettage Information not a vailable 05/01/2022 , Obstetric, Follow-up [place] [address] [place] [address] ([address]) Vaccine List None recorded. Social History Tobacco Smoking Status Never Smoker Do you have difficulty walking or climbing stairs? N
--- OUTSIDE RECORDS SUMMARY | 2022-05-31 03:40 | XMS_ITS | Encounter Summary ---
[...] BMI Blood Pressure 5 ft 2 in 121 lbs 22.1 kg/m2 110/70 mm[Hg] Results Lab Results None recorded. Allergies Code Code System Name Reaction Severity Onset NKDA ? ? ? Problems Name Status Onset Date Source ? Active 12/13/2021 ? Uterine Size for Dates Discrepancy Active 03/30/2022 ? Subclinical Hypothyroidism Active ? ? Procedures Date Name Performed by ? 08/12/2016 Dilation and Curettage Information not a vailable 05/01/2022 , Obstetric, Follow-up [place] [address] [place] [address] ([address]) Vaccine List None recorded. Social History Tobacco Smoking Status Never Smoker Do you have difficulty walking or climbing stairs? N
--- OUTSIDE RECORDS SUMMARY | 2022-05-31 03:40 | XMS_ITS | Encounter Summary ---
[...] BMI Blood Pressure 5 ft 2 in 119 lbs 21.8 kg/m2 96/63 mm[Hg] Results Lab Results None recorded. Allergies Code Code System Name Reaction Severity Onset NKDA ? ? ? Problems Name Status Onset Date Source ? Active 12/13/2021 ? Uterine Size for Dates Discrepancy Active 03/30/2022 ? Subclinical Hypothyroidism Active ? ? Procedures Date Name Performed by ? 08/12/2016 Dilation and Curettage Information not a vailable 05/01/2022 , Obstetric, Follow-up [place] [address] [place] [address] ([address]) Vaccine List None recorded. Social History Tobacco Smoking Status Never Smoker Do you have difficulty walking or climbing stairs? N
--- OUTSIDE RECORDS SUMMARY | 2022-05-31 03:40 | XMS_ITS | Encounter Summary ---
[...] BMI Blood Pressure 5 ft 2 in 117 lbs 21.4 kg/m2 102/67 mm[Hg] Results Lab Results None recorded. Allergies Code Code System Name Reaction Severity Onset NKDA ? ? ? Problems Name Status Onset Date Source ? Active 12/13/2021 ? Uterine Size for Dates Discrepancy Active 03/30/2022 ? Subclinical Hypothyroidism Active ? ? Procedures Date Name Performed by ? 08/12/2016 Dilation and Curettage Information not a vailable 04/10/2022 US, Obstetric, Follow-up [place] [address] [place] [address] ([address]) 05/01/2022 US, Obstetric, Follow-up [place] [address] [place],
--- OUTSIDE RECORDS SUMMARY | 2022-05-31 03:40 | XMS_ITS | Encounter Summary ---
:2000 Author Reason for Visit OB visit Assessment and Plan 1. Uterine size for dates discrepancy 2. Routine care Discussion Note: None recorded.Patient educational [...] ft 2 in 114 lbs 20.9 kg/m2 98/67 mm[Hg] Results Lab Results None recorded. Allergies Code Code System Name Reaction Severity Onset NKDA ? ? ? Problems Name Status Onset Date Source ? Active 12/13/2021 ? Uterine Size for Dates Discrepancy Active 03/30/2022 ? Subclinical Hypothyroidism Active ? ? Procedures Date Name Performed by ? 08/12/2016 Dilation and Curettage Information not a vailable 03/15/2022 US, Obstetric, Follow-up [place] [address] [place] [address] ([address]) 04/10/2022 US, Obstetric, Follow-up [place] [address]
--- OUTSIDE RECORDS SUMMARY | 2022-05-31 03:40 | XMS_ITS | Encounter Summary ---
:2000 Author Reason for Visit None recorded. Assessment and Plan 1. Uterine size for dates discrepancy ? US, obstetric, follow-up Discussion Note: None recorded.Patient educational handouts: No information available. Plan of Care Reminders Provider Appointments Induction 06/04/2022 Jany castañeda MD 4:00PM Lab None recorded. ? ? Referral None recorded. ? ? Procedures None recorded. ? ? Surgeries None recorded. ? ? Imaging US, Obstetric, Follow-up 04/10/2022 Effie pedraza Medications Name Start Date ? [...] not a vailable 03/15/2022 US, Obstetric, Follow-up [place] [address] [place] [address] ([address]) 04/10/2022 US, Obstetric, Follow-up [place] [address]
--- OUTSIDE RECORDS SUMMARY | 2022-05-31 03:41 | XMS_ITS | Encounter Summary ---
:2000 Author Reason for Visit OB visit Assessment and Plan 1. Routine care 2. Uterine size for dates discrepancy Discussion Note: [...] BMI Blood Pressure 5 ft 2 in 112 lbs 20.5 kg/m2 96/62 mm[Hg] Results Lab Results None recorded. Allergies Code Code System Name Reaction Severity Onset NKDA ? ? ? Problems Name Status Onset Date Source ? Active 12/13/2021 ? Uterine Size for Dates Discrepancy Active 03/30/2022 ? Subclinical Hypothyroidism Active ? ? Procedures Date Name Performed by ? 08/12/2016 Dilation and Curettage Information not a vailable 03/15/2022 US, Obstetric, Follow-up [place] [address] [place] [address] ([address]) Vaccine List None recorded. Social History Tobacco Smoking Status Never Smoker D
--- OUTSIDE RECORDS SUMMARY | 2022-05-31 03:41 | XMS_ITS | Encounter Summary ---
:2000 Author Reason for Visit None recorded. Assessment and Plan 1. Small for gestational age fetus ? US, obstetric, follow-up Discussion Note: None recorded.Patient educational handouts: No information available. Plan of Care Reminders Provider Appointments Induction 06/04/2022 Jany castañeda MD 4:00PM Lab None recorded. ? ? Referral None recorded. ? ? Procedures None recorded. ? ? Surgeries None recorded. ? ? Imaging US, Obstetric, Follow-up 03/15/2022 Effie pedraza Medications Name Start Date ? [...] not a vailable 03/15/2022 US, Obstetric, Follow-up [place] [address] [place] [address] ([address]) Vaccine List None recorded. Social History Tobacco Smoking Status Never Smoker Do you have difficulty walking or climbing stairs? N
--- OUTSIDE RECORDS SUMMARY | 2022-05-31 03:41 | XMS_ITS | Encounter Summary ---
:2000 Author Reason for Visit OB visit Assessment and Plan Assessment Note Patient is ___weeks . Discussed plan. 1. Nausea and vomiting ? ondansetron 8 mg disintegrating table t 2. Hypothyroidism in ? levothyroxine 50 mcg tablet Discussion Note: None recorded.Patient educational handouts: No [...] BMI Blood Pressure 5 ft 2 in 110 lbs 20.1 kg/m2 96/64 mm[Hg] Results Lab Results None recorded. Allergies Code Code System Name Reaction Severity Onset NKDA ? ? ? Problems Name Status Onset Date Source ? Active 12/13/2021 ? Uterine Size for Dates Discrepancy Active 03/30/2022 ? Subclinical Hypothyroidism Active ? ? Procedures Date Name Performed by ? 08/12/2016 Dilation and Curettage Information not a vailable 03/15/2022 , Obstetric, Follow-up [place] [address]
--- NOTE | 2022-05-31 03:48 | LDADM ---
This patient, Angelia Johnson, was admitted to Labor/Delivery/Recovery 105 on 05/31/22 at 02:00. Plans for labor, pain management and were discussed with patient. Patient/family oriented to hospital policies and general routines including ID bracelet, bed and alarms, visiting hours, pain management, procedures, bathroom and other care routines, personal items, smoking policy, room service/diet and guest tray routines, security routines, and visiting hours. Patient/Family are encouraged to report perceived risks to care and to ask questions if they do not understand what they are told or what they should do. See OBIX for further documentation.
[2022-05-31 04:13] LABS: Basophils Percent Auto 0.3 % (0.2-1.2); Eosinophils Absolute Auto 0.2 K/mm3 (0-0.3); Eosinophils Percent Auto 1.4 % (0-4.4); Hematocrit 35.5 % (37.0-47.0); Hemoglobin 11.9 g/dL (12.0-15.0); Immature Granulocyte Absolute 0.08 K/mm3 (0.00-0.031); Immature Granulocyte Percent A 0.5 % (0-0.5); Lymphocytes Absolute Auto 2.36 K/mm3 (0.9-3.2); Lymphocytes Percent Auto 15.8 % (18.3-44.2); Mean Corpuscular HGB Conc 33.5 g/dl (32-36); Mean Corpuscular Hemoglobin 30.2 pg (26-34); Mean Corpuscular Volume 90.1 fl (80-100); Mean Platelet Volume 10.3 fl (7.4-10.4); Monocytes Absolute Auto 0.9 K/mm3 (0.1-0.6); Monocytes Percent Auto 5.8 % (2.6-8.5); Neutrophils Absolute Auto 11.4 K/mm3 (1.3-6.7); Neutrophils Percent Auto 76.2 % (45.5-73.1); Platelet Count Result 259 k/mm3 (150-375); Red Blood Count 3.94 M/mm3 (4.2-5.4); Red Cell Distribution Width 13.6 % (11.5-14.5); White Blood Count 14.9 K/mm3 (4.5-10.0)
[2022-05-31 06:35] LABS: Rapid Plasma Reagin Non-Reactive (NonReactive)
[2022-05-31] MEDS: LACTATED RINGERS 1,000 ML 125 ML IV CONT (07:50)
[2022-05-31] MEDS: ONDANSETRON INJ 4 MG/2 ML VIAL IV PUSH (07:52)
[2022-05-31] MEDS: fentaNYL CITRATE INJ (*CRX) 100 MCG/2 ML VIAL 50 MCG IV PUSH ×2 (07:53→09:15)
--- NOTE | 2022-05-31 08:35 | WPDHPUPDATE1 ---
History and Physical Update Update Date/Time: 05/31/22 08:35 This patient is a 21-year-old 2 para 0 and at term who presented for labor. Artificial rupture of membranes was performed. Clear fluid. Her exam is excellent. She is . There is reassuring heart tones. We are continue with expectant management. History and Physical has been reviewed, including an updated exam of the patient. There are NO changes in the patient's condition. Risks, benefits, and alternatives have been discussed and questions answered. Patient agrees to proceed with procedure.
--- NOTE | 2022-05-31 10:27 | P.PNAN_ITS ---
Anes - Eval Pre Procedure Procedure: labor epidural Date/Time: 05/31/22 10:27 Preop Diagnosis: labor pain Pre Op Diagnosis: Contractions Patient Data Age: 21 Gender: F Height: 1.57 m Weight: 55 kg Last Vital Signs Temp 37.1 C 05/31/22 10:20 Pulse 78 05/31/22 10:00 BP 104/68 05/31/22 10:00 O2 Del Method Room Air 05/31/22 03:46 Allergies Allergy/AdvReac Type Severity Reaction Status Date / Time No Known Allergies Allergy Verified 10/03/21 17:23 Home Medications Medication Instructions Recorded Confirmed Type levothyroxine 75 mcg tablet 75 mcg PO DAILY 05/10/22 05/10/22 History Laboratory Tests 05/31/22 05/31/22 05/31/22 04:01 04:01 04:01 WBC 14.9 K/mm3 H K/mm3 (4.5-10.0) RBC 3.94 M/mm3 L M/mm3 (4.2-5.4) Hgb 11.9 g/dL L g/dL (12.0-15.0) Hct 35.5 % L % (37.0-47.0) MCV 90.1 fl fl (80-100) MCH 30.2 pg pg (26-34) MCHC 33.5 g/dl g/dl (32-36) RDW 13.6 % % (11.5-14.5) Plt Count 259 k/mm3 k/mm3 (150-375) MPV 10.3 fl fl (7.4-10.4) Immature Gran % (Auto) 0.5 % % (0-0.5) Neut % (Auto) 76.2 % H % (45.5-73.1) Lymph % (Auto) 15.8 % L % (18.3-44.2) Davis % (Auto) 5.8 % % (2.6-8.5) Eos % (Auto) 1.4 % % (0-4.4) Baso % (Auto) 0.3 % % (0.2-1.2) Lymph # (Auto) 2.36 K/mm3 K/mm3 (0.9-3.2) Davis # (Auto) 0.9 K/mm3 H K/mm3 (0.1-0.6) Eos # (Auto) 0.2 K/mm3 K/mm3 (0-0.3) Baso # (Auto) 0.0 K/mm3 K/mm3 (0.0-0.1) Abs Immat Gran (auto) 0.08 K/mm3 H K/mm3 (0.00-0.031) Absolute Neuts (auto) 11.4 K/mm3 H K/mm3 (1.3-6.7) Absolute Nucleated RBC 0.0 K/mm3 K/mm3 (0.0-0.012) Nucleated RBC % 0.0 % % (0.0-0.2) RPR Non-reactive (NonReactive) Blood Type O Positive Antibody Screen Negative Patient hx anesthesia problems: none Family hx anesthesia problems: none Results Review: All pre-operative results and documents have been reviewed as part of the pre- operative evaluation. [facility] Past Medical History Medical History No active medical problems Family History Family History Other Patient denies significant medical history Social History Social History Smoking status: Never smoker Second hand tobacco smoke exposure: No Substance use: never Spiritual care concerns: No Exam Day of Procedure 05/31/22 10:27
[2022-05-31] MEDS: LACTATED RINGERS 1,000 ML 999 ML IV CONT ×2 (10:48→11:44)
[2022-05-31] MEDS: OXYTOCIN 30 UNITS/NS 500 ML 30 UNITS/500 ML BAG 999 UNITS IV CONT (15:37)
--- NOTE | 2022-05-31 15:58 | PM.OBPRVD ---
OB - Delivery Note Procedure Procedure: Induction method: None Delivery monitor: External FHT and External Uterine Route of delivery: Laceration Description: Perineal - 2nd Degree Delivery repair: vicryl Quantitative Blood Loss (ml): 250 Anesthesia type: Epidural [place] Baby Date of : 05/31/22 Time of : 15:34 Weeks of gestation at delivery: 40 Weight (pounds): 7 Weight (ounces): 0 presentation: vertex Cord Vessel Description: 3 Vessels score one minute: 8 score five minutes: 9
[2022-05-31] MEDS: WITCH HAZEL 40 PADS 1 PAD TOPICAL (17:27)
[2022-05-31] MEDS: BENZOCAINE 20% AER SPR (*SP) 56 GM CAN 1 SPRAY TOPICAL (17:27)
[2022-05-31] MEDS: ACETAMINOPHEN 325 MG TABLET 650 MG PO (17:27)
[2022-05-31] MEDS: IBUPROFEN 600 MG TABLET PO (17:28)
--- NOTE | 2022-05-31 18:46 | PC.NURSE ---
Patient transferred to post room #291 per wheelchair from labor and delivery. Support person present. Oriented to unit, room, information board, rooming in, admission packet and security measures. Patient verbalizes understanding.
[2022-06-01 00:40] VITALS: BP 106/71; PULSE 82; RESP 16; TEMP 36.6
[2022-06-01] MEDS: IBUPROFEN 600 MG TABLET PO ×4 (00:59→23:27)
[2022-06-01] MEDS: ACETAMINOPHEN 325 MG TABLET 650 MG PO ×2 (01:01→12:43)
[2022-06-01 05:00] VITALS: BP 98/55; PULSE 74; RESP 18; TEMP 36.4
[2022-06-01 05:24] LABS: Hematocrit 26.3 % (37.0-47.0); Hemoglobin 8.7 g/dL (12.0-15.0)
--- NOTE | 2022-06-01 08:01 | PM.OBPNVD ---
OB - PN: Subj Subjective Date/time seen: 06/01/22 08:01 Patient comments: no complaints and pain well controlled baby status: doing well and nursing well [place] feeding status: exclusively breast feeding OB - PN: Obj Data Labs CBC & Chem 7: 06/01/22 05:03 Labs: Laboratory Results - last 24 hr 06/01/22 05:03 Hgb 8.7 L D Hct 26.3 L OB - PN A/P Plan day: 1 Plan: routine care Comments: anemia- venofer x1 circ done after consented Time Spent With Patient Time: Total time spent is greater than 50% in coordination of care (as documented) at patient's floor/unit and/or counseling patient: Time with patient: less than 15 minutes Exam Narrative: NAD abdomen soft, nontender, fundus firm below the umbilicus Extremities nontender, 1+ edema
--- NOTE | 2022-06-01 08:09 | WPDANLDPN2 ---
Anes-Prog Note L&D Date/Time: 06/01/22 08:09 Comfortable throughout: labor and delivery Neuraxial method: epidural Epidural/Spinal procedure site: clean & non-tender Neuro status: Neuro function grossly intact. Cardiovascular status: normal Respiratory status: normal Airway patency: baseline Mental status: baseline Post-Op hydration status: normal Vital Signs: Last Vital Signs Temp 36.4 C L 06/01/22 05:00 Pulse 74 06/01/22 05:00 Resp 18 06/01/22 05:00 BP 98/55 L 06/01/22 05:00 Pulse Ox 98 05/31/22 14:46 O2 Del Method Room Air 05/31/22 03:46 Pain score (VAS): 2 I/O: Intake & Output 05/31/22 06/01/22 06/01/22 23:59 07:59 15:59 Output Total 875 Balance -875 Post-procedural complaints: none Patient feedback: Patient satisfied with anesthetic care.
[2022-06-01 08:35] VITALS: BP 100/63; PULSE 74; RESP 16; TEMP 36.6; O2SAT 100
[2022-06-01] MEDS: POLYSACCHARIDE IRON COMPLEX 150 MG CAPSULE PO ×2 (08:51→16:21)
[2022-06-01] MEDS: LEVOTHYROXINE SODIUM 75 MCG TABLET PO (08:51)
[2022-06-01] MEDS: MULTIVIT/MIN/PREN/FOL AC/IRON TABLET 1 TAB PO (08:51)
[2022-06-01] MEDS: DOCUSATE SODIUM 100 MG CAPSULE PO ×2 (08:51→16:19)
--- NOTE | 2022-06-01 11:57 | PC.NURSE ---
[id number] Primary RN is at bedside assisting mother attempting to latch reluctant to the breast. is latching shallow at times. Introductions were made, then consulted with patient to assess needs related to . Mother works well with her infant with encouragement and education despite being tired (hgb 8.7). Encouraged understanding of the benefits of skin to skin (unwrapping and placing vertically on her chest), responsive feeding and how to watch for early feeding signs, frequency of feeding on demand about every 8-12 times in 24 hours (every 2-3 hours), milk production, duration of feeding, signs of adequate intake/output and how to record on the feeding sheet. was given time to explore mother's chest/breast igniting the feeding cue. continued to be reluctant at the breast. Mother was given education on hand exression and demonstrated the knowledge getting large drops of yellow, thick colostrum, then finger feeding her infant this first milk. Reviewed positioning and ear, shoulder, hip alignment, supporting the breast, asymmetrical latch (off-center), and leading with the chin with a big open side gape. latched optimally to the left breast in cross cradle position. Education given to mother of how to visualize suck/swallow ratios and drinking at the breast. was able to maintain latch without discomfort to mother. Nipple care reviewed with optimal deep latch and good positioning. Reminding mother of comfort measures of healing with a warm and wet washcloth to rinse breast, then leave open to air-dry as needed. Reviewed good handwashing when or touching the breast/nipples to prevent infection. Resources used to facilitate learning were used with the visual handouts/ tool/mom and baby guide. Mother voiced understanding of responsive feedings, stimulating with skin to skin, hand expressed colostrum, massage touch, talking to to encourage if it has been 2 -3 hours since the start of the last , to call if infant does not latch or there is discomfort with . Reported to the primary RN.
[2022-06-01 12:19] VITALS: BP 92/56; PULSE 93; RESP 16; TEMP 36.4; O2SAT 96
[2022-06-01 20:05] VITALS: BP 110/53; PULSE 81; RESP 16; TEMP 36.9
--- NOTE | 2022-06-02 06:29 | PC.NURSE ---
Patient viewed the discharge video Mother & Baby Care, The First Two Weeks . Patient was given the opportunity and encouraged to ask questions. Patient verbalized understanding of information shared and has been given the mother/baby guide for home reference.
[2022-06-02] MEDS: LEVOTHYROXINE SODIUM 75 MCG TABLET PO (08:12)
[2022-06-02 08:15] VITALS: BP 97/66; PULSE 90; RESP 18; TEMP 36.6; O2SAT 100
--- NOTE | 2022-06-02 09:24 | PM.OBPNVD ---
OB - PN: Subj Subjective Date/time seen: 06/02/22 09:24 Patient comments: no complaints and pain well controlled baby status: doing well and nursing well [place] feeding status: exclusively breast feeding OB - PN: Obj Data Labs CBC & Chem 7: 06/01/22 05:03 OB - PN A/P Plan day: 2 Plan: routine care and discharge home Time Spent With Patient Time: Total time spent is greater than 50% in coordination of care (as documented) at patient's floor/unit and/or counseling patient: Time with patient: less than 15 minutes Exam Narrative: NAD abdomen soft, nontender, fundus firm below the umbilicus Extremities nontender, 1+ edema
--- NOTE | 2022-06-02 09:26 | P.DS_ITS ---
DS: Admitting Diagnosis Discharge Date 06/02/22 Admitting Diagnosis term IUP, labor DS: Discharge Diagnosis Discharge Diagnosis (1) , delivered: Code(s): O80 - Encounter for full-term uncomplicated delivery Status: Acute OB - DS: Summary Hospital Course Hospital Course: Angelia was admitted in labor at term. She proceeded to have an uncomplicated vaginal delivery and course. She was discharged home on PPD 2. OB Procedures : Ultrasound OB Procedures Intrapartum: Spontaneous Vag Delivery OB Procedures: : None Peripartum Data Delivery Method: Natural Vaginal complications: none Status at Discharge Functional status at discharge: independent ambulation Time Spent with Patient Time attestation: Total time spent providing and/or coordinating discharge services: Exam Narrative: NAD abdomen soft, appropriately tender Ext non tender, 1+ edema Discharge Plan Discharge Attending physician on discharge: Jany Easley Discharging Clinician: Jany Easley Patient Disposition: Home, Self-Care Activity: pelvic rest Diet: regular Discharge Instructions: ibuprofen 600mg every 6 hours as needed Patient Instructions: Antibiotic Form Stand Alone Forms: General Discharge Information Follow-up/Referrals: Jany Easley MD [Physician] - 4 Weeks Discharge Medications: Continued levothyroxine 75 mcg Tablet 75 mcg PO DAILY Date of admission: 05/31/22 02:00 Primary Care Provider: PHYSICIAN,WEBSITE PROGRAMMER Admitting Provider: Jany Easley Attending physician on admission: Jany Easley Condition: Stable
[2022-06-02] MEDS: MULTIVIT/MIN/PREN/FOL AC/IRON TABLET 1 TAB PO (09:56)
[2022-06-02] MEDS: DOCUSATE SODIUM 100 MG CAPSULE PO (09:56)
[2022-06-02] MEDS: POLYSACCHARIDE IRON COMPLEX 150 MG CAPSULE PO (09:56)
[2022-06-02] MEDS: IBUPROFEN 600 MG TABLET PO (09:56)
[2022-06-04 13:18] VITALS: BP 103/64; PULSE 91; RESP 16; TEMP 36.9; O2SAT 99
== END 2022-06-02 13:26 | disposition home or self-care (01) | DRG 560 ==
LOC: ANHLDR 03:48 → ANHOB2 18:52
PROVIDERS: Advanced Practice Midwife; Obstetrics & Gynecology; Admitting Provider Obstetrics & Gynecology; Visit Provider Obstetrics & Gynecology
DX: O36.8330 Maternal care for abnormalities of the fetal heart rate or rhythm, third trimester, not applicable or unspecified (principal); O70.1 Second degree perineal laceration during delivery; Z37.0 Single live birth; Z3A.40 40 weeks gestation of pregnancy
CPT/HCPCS: 36415; 85014; 85018; 85025; 86592; 86850; 86900; 86901; A9270; J2405; J2590; J2795; J3010; J7120